=== PATIENT | female | born 1965 | race Caucasian/White ===

== ENCOUNTER 2022-03-25 12:00 | Outpatient (CLI) | payer BC | END 2022-03-25 12:01 | disposition home or self-care (01) | LOC: BICRAD 12:00 | PROVIDERS: ATTEND Nurse Practitioner Family | DX: J40 Bronchitis, not specified as acute or chronic (principal); R91.1 Solitary pulmonary nodule | CPT/HCPCS: 71046 ==

== ENCOUNTER 2022-04-08 09:06 | Outpatient (CLI) | payer BC | END 2022-04-08 09:07 | disposition home or self-care (01) | LOC: BICCT 09:06 | PROVIDERS: ATTEND Nurse Practitioner Family | DX: R91.1 Solitary pulmonary nodule (principal); J84.10 Pulmonary fibrosis, unspecified; K76.0 Fatty (change of) liver, not elsewhere classified; K80.20 Calculus of gallbladder without cholecystitis without obstruction | CPT/HCPCS: 71260 ==

== ENCOUNTER 2023-01-27 09:34 | Outpatient (CLI) | payer BC | END 2023-01-27 09:35 | disposition home or self-care (01) | LOC: BICRAD 09:34 | PROVIDERS: ATTEND Nurse Practitioner Family | DX: R91.8 Other nonspecific abnormal finding of lung field (principal) | CPT/HCPCS: 71046 ==